=== PATIENT | female | born 1990 | race Caucasian/White ===

== ENCOUNTER 2022-01-08 09:00 | Emergency (ER) | payer OTHER ==
[~2022-01-08] VITALS: Ht 162.6 cm; Wt 69.4 kg
[2022-01-08 09:20] VITALS: BP 132/78
--- NOTE | 2022-01-08 09:36 | PHYS DOC ---
Past History Past Surgical History: Appendectomy, Alcohol Use: None Adult General Chief Complaint Chief Complaint: VAGINAL BLEEDING [facility] HPI Patient is a 31-year-old presenting for vaginal spotting in . She reports she is approximately 7 weeks gestation based on first day last menstrual period with regnancy confirmed by [facility] test. States yesterday without any trauma, sexual intercourse or other mechanism of injury or exposure she experienced blood-tinged discharge and x2 episodes of small clot-like material which concerned her. She has yet to follow-up with her [employer] in outpatient setting and presents today, asymptomatic, concern for potential miscarriage. 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 See HPI for pertinent positives and negative responses, other hall all other systems are negative, non-pertinent or non-contributory Allergies Allergies Allergies Coded Allergies Type Severity Reaction Last Updated Verified No Known Drug Allergies 01/08/22 No Physical Exam Physical Exam Constitutional: Well developed, well nourished, no acute distress, non-toxic appearance. HENT: Normocephalic, atraumatic, bilateral external ears normal, oropharynx moist, no oral exudates, nose normal. Eyes: PERRLA, EOMI, conjunctiva normal, no discharge. Neck: Normal range of motion, no tenderness, supple, no stridor. Cardiovascular: Heart rate regular, sinus rhythm, no murmurs rubs or gallops Lungs & Thorax: Bilateral breath sounds clear to auscultation Abdomen: Bowel sounds normal, soft, no tenderness, no masses, no pulsatile ma sses. Nonsurgical abdomen, no peritoneal signs Skin: Warm, dry, no erythema, no rash. Back: No tenderness, no CVA tenderness. Extremities: No tenderness, no cyanosis, no clubbing, ROM intact, no edema. Neurologic: Alert and oriented X 3, grossly normal motor & sensory function, no focal deficits noted. Psychologic: Anxious affect and mood Current Patient Data Vital Signs Vital Signs Date Time Temp Pulse Resp B/P (MAP) Pulse Ox O2 Delivery O2 Flow Rate FiO2 01/08/22 09:20 88 18 132/78 (96) 99 Lab Results Laboratory Tests Test 01/08/22 09:24 POC Urine HCG, Qualitative hcg positive (Negative) EKG EKG [] Radiology/Procedures Radiology/Procedures OB ultrasound less than 14 weeks 01/08/22 CLINICAL HISTORY: First trimester with vaginal bleeding and cramping. TECHNIQUE: Using the distended urinary bladder as a sonographic window, a real- time ultrasound examination of the pelvis was performed. Additionally in an attempt to better evaluate the uterus and adnexa, a transvaginal ultrasound study was performed. Multiple images were obtained. FINDINGS: The uterus is within normal limits in size and echogenicity. It measures 9.6 x 5.0 x 4.9 cm in longitudinal, transverse, and the AP dimensions. The endometrial echo complex measures 1.1 cm in thickness which is within normal limits. No gestational sac is seen within the endometrial canal. No focal abnormality of the uterus is seen. Both ovaries are within normal limits in size and echogenicity. The right ovary measures 2.5 x 2.8 x 1.5 cm in size. The left ovary measures 4.4 x 2.6 x 1.9 cm in size. No adnexal mass is seen. No free fluid is noted. IMPRESSION: Negative study. No IUP is seen. This ultrasound finding could be seen with an very early IUP, missed spontaneous or possibly due to an occult ectopic . Clinical correlation and correlation with the patient's serial beta hCG level is recommended. Electronically signed by: Hu Munoz MD (01/08/2022 12:01 PM) [id number] Heart Score C/O Chest Pain: No Risk Factors: Risk Factors: DM, Current or recent (<one month) smoker, HTN, HLP, family h istory of CAD, obesity. Risk Scores: Risk Factors: DM, Current or recent (<one month) smoker, HTN, HLP, family history of CAD, obesity. Course & Med Decision Making Course & Med Decision Making ABCs unremarkable HPI and physical exam nonconcerning for emergent or surgical issues Labs obtained, patient utilized bathroom and had extensive clot burden excreted into the toilet which concerned her with subsequent suprapubic cramping. She is a positive blood type, no indication for RhoGam Bedside ultrasound performed with subsequent formal ultrasound performed showing no obvious IUP. Findings discussed with patient. Disclosed beta hCG level of 3811. I discussed need for close outpatient follow-up with [employer] for trending of this level as this is likely early IUP not identified versus miscarriage. Patient did suffer a migraine during ER visit that resolved with her typical home migraine cocktail administered today. Ultimately, joint decision among patient and spouse at bedside to discharge home with continued supportive care practices and close outpatient follow-up Clif Disclaimer Clif Disclaimer This electronic medical record was generated, in whole or in part, using a voice recognition dictation system. Departure Departure: Impression: Primary Impression: Vaginal bleeding in Disposition: HOME / SELF CARE / HOMELESS Condition: STABLE Referrals: COBY SANCHEZ APRN (PCP) Patient Instructions: Vaginal Bleeding During , First Trimester Additional Instructions: As discussed prior to ER departure, your vitals physical exam and comprehensive ER work-up were nonconcerning for any emergent or surgical issues. Entirety of ER findings were disclosed with you concerning for potential /miscarriage. You were given instructions on need for close outpatient [employer] follow-up. There is no indication for RhoGam administration today. Beta hCG level today was 3811, this needs to be repeated to see if findings of no intrauterine are due to inevitable miscarriage or if this is just an early finding without radiographic evidence. If any concerning signs or symptoms present prior to outpatient follow-up please do not hesitate to come back for repeat evaluation. It was a pleasure to take care of you and I wish you the best going forward AJITH DUARTE DO Jan 08, 2022 09:35
[2022-01-08 10:24] LABS: CALCIUM 8.9 mg/dL (8.5-10.1); CREATININE 0.6 mg/dL (0.6-1.0); GFR 115.9
[2022-01-08 10:28] LABS: BASO % 1 % (0-3); EOS % 1 % (0-3); HEMATOCRIT 41.5 % (36.0-47.0); HEMOGLOBIN 13.9 g/dL (12.0-15.5); LYMPH # 1.5 x10^3/uL (1.0-4.8); LYMPH % 19 % (24-48); MEAN CORPUSCULAR HEMOGLOBIN 30 pg (25-35); MEAN CORPUSCULAR HGB CONC 34 g/dL (31-37); MEAN CORPUSCULAR VOLUME 89 fL (79-100); MONO # 0.8 x10^3/uL (0.0-1.1); MONO % 9 % (0-9); NEUT # 5.8 x10^3uL (1.8-7.7); NEUT % 71 % (31-73); PLATELET COUNT 276 x10^3/uL (140-400); RED BLOOD COUNT 4.67 x10^6/uL (3.50-5.40); RED CELL DISTRIBUTION WIDTH 14.9 % (11.5-14.5); WHITE BLOOD COUNT 8.2 x10^3/uL (4.0-11.0)
[2022-01-08] MEDS ORDERED: diphenhydrAMINE HCL 25 MG CAPSULE PO ONE ×2 (10:29→10:30)
[2022-01-08] MEDS ORDERED: tiZANidine 4 MG TABLET. ONE (10:29)
[2022-01-08] MEDS ORDERED: METOCLOPRAMIDE 10 MG TABLET PO ONE (10:30)
[2022-01-08] MEDS ORDERED: METOCLOPRAMIDE 10 MG TABLET ONE (10:30)
[2022-01-08] MEDS ORDERED: tiZANidine 4 MG TABLET. PO ONE (10:30)
--- NOTE | 2022-01-08 12:04 | RAD ---
OB ultrasound less than 14 weeks 01/08/22 CLINICAL HISTORY: First trimester with vaginal bleeding and cramping. TECHNIQUE: Using the distended urinary bladder as a sonographic window, a real-time ultrasound examin ation of the pelvis was performed. Additionally in an attempt to better evaluate the uterus and adnex a, a transvaginal ultrasound study was performed. Multiple images were obtained. FINDINGS: The uterus is within normal limits in size and echogenicity. It measures 9.6 x 5.0 x 4.9 cm in longitudinal, transverse, and the AP dimensions. The endometrial echo complex m easures 1.1 cm in thickness which is within normal limits. No gestational sac is seen within the endo metrial canal. No focal abnormality of the uterus is seen. Both ovaries are within normal limits in size and echogenicity. The right ovary measures 2.5 x 2.8 x 1.5 cm in size. The left ovary measures 4.4 x 2.6 x 1.9 cm in size. No adnexal mass is seen. No free fluid is noted. IMPRESSION: Negative study. No IUP is seen. This ultrasound finding could be seen with an very early IUP, missed spontaneous or possibly due to an occult ectopic . Clinical correlation and correlation with the patient's serial beta hCG level is recommended. Electronically signed by: Hu Munoz MD (01/08/2022 12:01 PM) [id number]
[2022-01-08] MEDS ORDERED: ONDANSETRON ODT 4 MG TAB.RAPDIS ONE (12:21)
[2022-01-08] MEDS ORDERED: ONDANSETRON ODT 4 MG TAB.RAPDIS PO ONE (12:30)
== END 2022-01-08 12:30 | disposition home or self-care (01) ==
LOC: ER 09:00
DX: O46.91 Antepartum hemorrhage, unspecified, first trimester (principal); Z3A.01 Less than 8 weeks gestation of pregnancy
CPT/HCPCS: 36415; 76801; 76817; 80048; 81025; 84702; 85025; 99284; Q0163; 96360